=== PATIENT | male | born 1985 | race Hispanic/Latino ===

== ENCOUNTER → 2025-04-20 | Outpatient (CLI) | payer OTHER ==
[~2025-04-20] MED LIST: METHACHOLINE KIT (6 VIAL.NEB PREMIX) INH ONE
== END ==
LOC: M CARPUL 09:35
PROVIDERS: ATTEND Physician Assistant
DX: R06.02 Shortness of breath (principal)
CPT/HCPCS: 94070; 95070; J7674

== ENCOUNTER → 2025-04-28 | Outpatient (CLI) | payer OTHER | LOC: M PLAIMG 10:24 | PROVIDERS: ATTEND Physician Assistant | DX: R06.02 Shortness of breath (principal); Z65.5 Exposure to disaster, war and other hostilities ==